=== PATIENT | male | born 1950 | race Caucasian/White ===

== ENCOUNTER 2018-07-22 11:31 | Outpatient (REF) | payer OTHER, SELFPAY ==
[2018-07-24 11:33] LABS: PSA, Screening 0.6 ng/ml (0-6.5)
== END 2018-07-22 11:51 ==
LOC: NCHCN 11:31
PROVIDERS: PCP Physician Assistant Medical; Visit Provider Physician Assistant Medical
DX: Z12.5 Encounter for screening for malignant neoplasm of prostate (principal)
CPT/HCPCS: 84153

== ENCOUNTER 2018-11-27 18:24 | Outpatient (REF) | payer OTHER, SELFPAY ==
[2018-11-27 20:03] LABS: BUN 17 mg/dL (7-18); CREATININE 0.84 mg/dL (0.70-1.30); Calcium 8.9 mg/dL (8.5-10.1); Chloride 102 mmol/L (98-107); Glucose 100 mg/dL (70-100); Potassium 4.2 mmol/L (3.5-5.1); Sodium 136 mmol/L (136-145)
== END 2018-11-27 18:44 ==
LOC: NCHCN 18:24
PROVIDERS: PCP Physician Assistant Medical; Visit Provider Physician Assistant Medical
DX: I10 Essential (primary) hypertension (principal)
CPT/HCPCS: 80048

== ENCOUNTER 2020-06-22 22:03 | Outpatient (REF) | payer OTHER, SELFPAY ==
[2020-06-22 20:43] LABS: Abs Immature Grans 0.02 10^3/uL (0.0-0.06); Absolute Basophil Count 0.05 10^3/uL (0.0-0.2); Absolute Eosinophil Count 0.16 10^3/uL (0.0-0.7); Absolute Lymphocyte Count 2.49 10^3/uL (1.2-3.4); Absolute Monocyte Count 0.95 10^3/uL (0.1-0.8); Absolute Neutrophil Count 2.96 10^3/uL (1.2-6.7); Basophils % 0.8; Eosinophils % 2.4; HCT 44.8 % (40.0-50.0); HGB 16.2 g/dL (13.5-17.5); Immature Grans % 0.3; Lymphocytes % 37.6; MCH 35.1 pg (27.0-33.0); MCHC 36.2 % (32.0-36.0); MPV 9.3 fL (8.0-11.0); Monocytes % 14.3; Neutrophils % 44.6; Nucleated RBC 0 %; Platelet Count 151 10^3/uL (130-400); RBC 4.62 10^6/uL (4.36-5.78); RDW 11.2 % (11.8-14.1); RDW-SD 40.1 fL; WBC 6.63 10^3/uL (4.4-10.8)
[2020-06-22 20:56] LABS: ALT 46 U/L (16-63); AST 22 U/L (15-37); Albumin 4.5 g/dL (3.4-5.0); Alkaline Phosphatase 44 U/L (46-116); Anion Gap 8.6 mmol/L (3-11); BUN 12 mg/dL (7-18); CO2 27.4 mmol/L (21.0-32.0); CREATININE 0.9 mg/dL (0.70-1.30); Chloride 98 mmol/L (98-107); Glucose 97 mg/dL (74-106); Sodium 134 mmol/L (136-145); Total Protein 6.9 g/dL (6.4-8.2)
[2020-06-22 22:04] LABS: Bilirubin Negative (Negative); Blood Negative (Negative); Clarity Clear (Clear); Glucose Negative (Negative); Ketones Negative (Negative); Leukocyte Esterase Negative (Negative); Nitrite Negative (Negative); Urobilinogen 0.2 EU/dL (Up TO 0.2)
== END 2020-06-22 22:04 | disposition home or self-care (01) ==
LOC: NCHCN 22:03
PROVIDERS: PCP Physician Assistant Medical; Visit Provider Family Medicine
DX: R10.9 Unspecified abdominal pain (principal)
CPT/HCPCS: 80053; 81003; 85025

== ENCOUNTER 2021-03-17 13:48 | Outpatient (REF) | payer OTHER, SELFPAY ==
[2021-03-20 09:46] LABS: PSA, Screening 0.8 ng/mL (0.0-6.5)
== END 2021-03-17 13:49 | disposition home or self-care (01) ==
LOC: NCHCN 13:48
PROVIDERS: PCP Physician Assistant Medical; Visit Provider Physician Assistant
DX: Z12.5 Encounter for screening for malignant neoplasm of prostate (principal); Z80.42 Family history of malignant neoplasm of prostate
CPT/HCPCS: 84153

== ENCOUNTER 2021-12-01 11:54 | Outpatient (REF) | payer OTHER, SELFPAY ==
[2021-12-01 19:29] LABS: Anion Gap 11.5 mmol/L (3-11); BUN 17 mg/dL (7-18); CO2 22.5 mmol/L (21.0-32.0); CREATININE 0.9 mg/dL (0.70-1.30); Calcium 8.7 mg/dL (8.5-10.1); Chloride 95 mmol/L (98-107); Glucose 100 mg/dL (74-106); Sodium 129 mmol/L (136-145)
== END 2021-12-01 11:55 | disposition home or self-care (01) ==
LOC: NCHCN 11:54
PROVIDERS: PCP Physician Assistant Medical; Visit Provider Physician Assistant
DX: I10 Essential (primary) hypertension (principal)
CPT/HCPCS: 80048

== ENCOUNTER 2022-12-19 11:01 | Outpatient (REF) | payer OTHER, SELFPAY ==
[2022-12-19 20:47] LABS: ALT 37 U/L (16-63); AST 22 U/L (15-37); Albumin 4.4 g/dL (3.4-5.0); Alkaline Phosphatase 33 U/L (46-116); Anion Gap 8.4 mmol/L (3-11); BUN 14 mg/dL (7-18); Bilirubin, Total 0.9 mg/dL (0.2-1.0); CO2 27.6 mmol/L (21.0-32.0); CREATININE 0.9 mg/dL (0.70-1.30); Calcium 9.2 mg/dL (8.5-10.1); Chloride 95 mmol/L (98-107); Estimated GFR 89.62 (mL/min/1.73m2); Glucose 106 mg/dL (74-106); Potassium 4.2 mmol/L (3.5-5.1); Sodium 131 mmol/L (136-145); Total Protein 6.8 g/dL (6.4-8.2)
[2022-12-20 19:28] LABS: PSA, Screening 0.6 ng/mL (<=6.5)
== END 2022-12-19 11:02 | disposition home or self-care (01) ==
LOC: NCHCN 11:01
PROVIDERS: PCP Physician Assistant Medical; Visit Provider Physician Assistant
DX: I10 Essential (primary) hypertension (principal); Z80.42 Family history of malignant neoplasm of prostate
CPT/HCPCS: 80053; 84153

== ENCOUNTER 2023-02-12 18:28 | Outpatient (REF) | payer OTHER, SELFPAY ==
[2023-02-12 19:01] LABS: Anion Gap 7.7 mmol/L (3-11); BUN 16 mg/dL (7-18); CO2 26.3 mmol/L (21.0-32.0); CREATININE 1.1 mg/dL (0.70-1.30); Calcium 9.7 mg/dL (8.5-10.1); Chloride 94 mmol/L (98-107); Estimated GFR 70.44 (mL/min/1.73m2); Glucose 131 mg/dL (74-106); Potassium 4.1 mmol/L (3.5-5.1); Sodium 128 mmol/L (136-145)
[2023-02-12 19:09] LABS: Creatinine,Urine 28.02 mg/dL; Sodium, Urine 54 mmol/L
== END 2023-02-12 18:29 | disposition home or self-care (01) ==
LOC: NCHCN 18:28
PROVIDERS: PCP Physician Assistant Medical; Visit Provider Physician Assistant
DX: E87.1 Hypo-osmolality and hyponatremia (principal); I10 Essential (primary) hypertension
CPT/HCPCS: 80048; 82565; 84300

== ENCOUNTER 2023-05-31 11:36 | Outpatient (REF) | payer OTHER, MEDICARE, SELFPAY ==
[2023-05-31 19:03] LABS: Abs Immature Grans 0.01 10^3/uL (0.0-0.06); Absolute Basophil Count 0.04 10^3/uL (0.0-0.2); Absolute Lymphocyte Count 1.39 10^3/uL (1.2-3.4); Absolute Monocyte Count 0.86 10^3/uL (0.1-0.8); Basophils % 0.8; Eosinophils % 3.9; HCT 44.7 % (40.0-50.0); HGB 16.1 g/dL (13.5-17.5); Immature Grans % 0.2; Lymphocytes % 27.3; MCH 35.6 pg (27.0-33.0); MCV 99 fL (80-95); MPV 8.9 fL (8.0-11.0); Monocytes % 16.9; Neutrophils % 50.9; Platelet Count 139 10^3/uL (130-400); RBC 4.52 10^6/uL (4.36-5.78); RDW 11.5 % (11.8-14.1); RDW-SD 42.1 fL
[2023-05-31 19:10] LABS: ALT 32 U/L (16-63); AST 20 U/L (15-37); Alkaline Phosphatase 36 U/L (46-116); Anion Gap 4.2 mmol/L (3-11); Bilirubin, Total 0.8 mg/dL (0.2-1.0); CO2 26.8 mmol/L (21.0-32.0); Calcium 9.2 mg/dL (8.5-10.1); Chloride 96 mmol/L (98-107); Estimated GFR 78.49 (mL/min/1.73m2); Glucose 101 mg/dL (74-106); Magnesium 1.9 mg/dL (1.8-2.4); Potassium 4.8 mmol/L (3.5-5.1); Sodium 127 mmol/L (136-145); Total Protein 6.7 g/dL (6.4-8.2); Troponin I < 50 ng/L (< or =60)
[2023-05-31 19:22] LABS: Albumin 4.2 g/dL (3.4-5.0); BUN 16 mg/dL (7-18)
== END 2023-05-31 11:37 | disposition home or self-care (01) ==
LOC: NCHCN 11:36
PROVIDERS: PCP Physician Assistant Medical; Visit Provider Physician Assistant
DX: R07.89 Other chest pain (principal)
CPT/HCPCS: 80053; 83735; 84484; 85025

== ENCOUNTER 2023-12-27 13:26 | Outpatient (REF) | payer OTHER, SELFPAY ==
[2023-12-27 19:00] LABS: Anion Gap 6.3 mmol/L (3-11); BUN 17 mg/dL (7-18); CO2 27.7 mmol/L (21.0-32.0); Calcium 8.9 mg/dL (8.5-10.1); Chloride 98 mmol/L (98-107); Estimated GFR 78.49 (mL/min/1.73m2); Glucose 98 mg/dL (74-106); Potassium 4.2 mmol/L (3.5-5.1); Sodium 132 mmol/L (136-145)
[2023-12-30 09:47] LABS: Hepatitis C Ab w Rflx HCV PCR Negative (Negative)
== END 2023-12-27 13:27 | disposition home or self-care (01) ==
LOC: NCHCN 13:26
PROVIDERS: PCP Physician Assistant Medical; Visit Provider Physician Assistant
DX: I10 Essential (primary) hypertension (principal); Z11.59 Encounter for screening for other viral diseases
CPT/HCPCS: 80048; 86803

== ENCOUNTER 2024-03-20 11:59 | Outpatient (REF) | payer OTHER, SELFPAY ==
[2024-03-20 19:45] LABS: Abs Immature Grans 0.02 10^3/uL (0.0-0.06); Absolute Basophil Count 0.05 10^3/uL (0.0-0.2); Absolute Eosinophil Count 0.43 10^3/uL (0.0-0.7); Absolute Lymphocyte Count 1.98 10^3/uL (1.2-3.4); Absolute Monocyte Count 1.05 10^3/uL (0.1-0.8); Absolute Neutrophil Count 2.69 10^3/uL (1.2-6.7); Basophils % 0.8 %; Eosinophils % 6.9 %; HGB 16.1 g/dL (13.5-17.5); Immature Grans % 0.3 %; Lymphocytes % 31.8 %; MCHC 35.8 % (32.0-36.0); MCV 101 fL (80-95); MPV 9.2 fL (8.0-11.0); Monocytes % 16.9 %; Neutrophils % 43.3 %; Platelet Count 136 10^3/uL (130-400); RBC 4.47 10^6/uL (4.36-5.78); RDW 11.7 % (11.8-14.1); RDW-SD 43.5 fL; WBC 6.22 10^3/uL (4.4-10.8)
[2024-03-20 20:14] LABS: ALT 38 U/L (16-63); AST 24 U/L (15-37); Albumin 4.3 g/dL (3.4-5.0); Alkaline Phosphatase 46 U/L (46-116); Anion Gap 6.9 mmol/L (3-11); BUN 19 mg/dL (7-18); Bilirubin, Total 0.97 mg/dL (0.2-1.0); CO2 26.1 mmol/L (21.0-32.0); Calcium 9.5 mg/dL (8.5-10.1); Chloride 102 mmol/L (98-107); Estimated GFR 78.49 (mL/min/1.73m2); Glucose 97 mg/dL (74-106); Potassium 4.5 mmol/L (3.5-5.1); Sodium 135 mmol/L (136-145); Total Protein 6.9 g/dL (6.4-8.2)
== END 2024-03-20 12:00 | disposition home or self-care (01) ==
LOC: NCHCN 11:59
PROVIDERS: PCP Physician Assistant Medical; Visit Provider Physician Assistant
DX: K57.92 Diverticulitis of intestine, part unspecified, without perforation or abscess without bleeding (principal)
CPT/HCPCS: 80053; 85025

== ENCOUNTER 2025-01-07 11:51 | Outpatient (REF) | payer OTHER, SELFPAY ==
[2025-01-07 19:12] LABS: ALT 36 U/L (16-63); AST 21 U/L (15-37); Albumin 4.3 g/dL (3.4-5.0); Alkaline Phosphatase 40 U/L (46-116); Anion Gap 6.4 mmol/L (3-11); BUN 15 mg/dL (7-18); Bilirubin, Total 0.7 mg/dL (0.2-1.0); CO2 28.6 mmol/L (21.0-32.0); Calcium 9.2 mg/dL (8.5-10.1); Chloride 101 mmol/L (98-107); Estimated GFR 88.51 (mL/min/1.73m2); Glucose 99 mg/dL (74-106); Potassium 4.1 mmol/L (3.5-5.1); Sodium 136 mmol/L (136-145); Total Protein 6.6 g/dL (6.4-8.2)
[2025-01-08 18:46] LABS: PSA, Diagnostic 1.3 ng/mL (<=6.5)
== END 2025-01-07 11:52 | disposition home or self-care (01) ==
LOC: NCHCN 11:51
PROVIDERS: PCP Physician Assistant Medical; Visit Provider Physician Assistant
DX: Z80.42 Family history of malignant neoplasm of prostate (principal); I10 Essential (primary) hypertension
CPT/HCPCS: 80053; 84153